=== PATIENT | female | born 1940 | race Caucasian/White ===

== ENCOUNTER → 2018-01-23 | Outpatient (CLI) | payer MEDICARE ==
[~2018-01-23] MED LIST: AUGMENTIN 875875 MG PO; LANTUS100 U/ML SC; LIDEX0.05% T
[2018-01-23 12:39] LABS: ALBUMIN 3.7 gm/dl (3.1-4.5); ALKALINE PHOSPHATASE 106 U/L (45-117); BUN 8 mg/dl (7-24); CHLORIDE 101 mmol/L (98-107); CHOLESTEROL 175 mg/dL (<200); CREATININE 0.78 mg/dL (0.55-1.02); HDL CHOLESTEROL 37 mg/dl (40-60); LDL CHOLESTEROL 92 mg/dL (9-159); POTASSIUM 4.4 mmol/L (3.5-5.1); SGOT/AST 27 IU/L (3-35); SGPT/ALT 20 U/L (12-78); SODIUM 138 mmol/L (136-145); TOTAL PROTEIN 7.2 gm/dL (6.4-8.2); TRIGLYCERIDES 228 mg/dl (<150); VLDL CHOLESTEROL 46 mg/dL (6-40)
[2018-01-24 06:43] LABS: CREATININE,URINE 190.3 mg/dL (Not Estab.); MICRO ALBUMIN/CRE RATIO 137.5 (0.0-30.0)
== END ==
LOC: LAB 11:12
PROVIDERS: Family Medicine
DX: E11.9 Type 2 diabetes mellitus without complications (principal); E78.5 Hyperlipidemia, unspecified; E55.9 Vitamin D deficiency, unspecified; Z79.4 Long term (current) use of insulin

== ENCOUNTER → 2020-03-10 | Emergency (ER) | payer OTHER ==
[~2020-03-10] VITALS: Ht 147.3 cm; Wt 65.8 kg
[~2020-03-10] MED LIST changes: +SEPTDS PO
[2020-03-10 10:16] LABS: HEMATOCRIT 40.1 % (37.0-47.0); MEAN CELL VOLUME 73.4 fl (81.0-99.0); MEAN CORPUSCULAR HGB CONC 29.9 g/dl (33.0-37.0); MEAN PLATELET VOLUME 12.1 fl (9.6-12.3); PLATELET COUNT AUTOMATED 278 10*3/uL (130-400); RED BLOOD COUNT 5.46 10*6/uL (4.10-5.10); RED CELL DISTRI WIDTH 18.6 % (0-14.5); WHITE BLOOD COUNT 13.8 10*3/uL (4.8-10.8)
[2020-03-10 10:25] LABS: BILIRUBIN NEGATIVE (NEGATIVE); BLOOD 3+ (NEGATIVE); CLARITY TURBID (CLEAR); COLOR YELLOW (YELLOW); GLUCOSE 3+ (NEGATIVE); KETONE 3+ (NEGATIVE); SPECIFIC GRAVITY 1.015 (1.005-1.030); UROBILINOGEN 0.2 E.U./dl (0.2-1.0)
[2020-03-10 10:26] LABS: LEUKO ESTERASE 3+ (NEGATIVE); NITRITE NEGATIVE (NEGATIVE)
[2020-03-10 10:29] LABS: ALBUMIN 3.6 gm/dl (3.1-4.5); ALKALINE PHOSPHATASE 92 U/L (45-117); BUN 9 mg/dl (7-24); CHLORIDE 99 mmol/L (98-107); CREATININE 0.83 mg/dL (0.55-1.02); POTASSIUM 3.6 mmol/L (3.5-5.1); SGOT/AST 10 IU/L (3-35); SGPT/ALT 19 U/L (12-78); SODIUM 133 mmol/L (136-145); TOTAL PROTEIN 8.1 gm/dL (6.4-8.2)
[2020-03-10 10:33] LABS: BACTERIA 4+; WBC TNTC wbc/hpf (0-5)
[2020-03-10 10:39] LABS: MICROCYTOSIS SLIGHT; PLATELET SUFFICIENCY NORMAL (NORMAL); POLYCHROMASIA SLIGHT; TOTAL CELLS COUNTED 100 #CELLS
[2020-03-10 10:40] LABS: OVALOCYTES FEW
== END ==
LOC: ED 09:33 → EDBD 09:34
PROVIDERS: Emergency Medicine
DX: N39.0 Urinary tract infection, site not specified (principal); E11.9 Type 2 diabetes mellitus without complications; Z91.040 Latex allergy status; Z79.4 Long term (current) use of insulin